=== PATIENT | male | born 2000 | race Two or more races ===

== ENCOUNTER 2025-06-09 08:33 | Emergency (ER) | payer MEDICAID ==
[~2025-06-09] VITALS: Ht 182.9 cm; Wt 136.5 kg
[2025-06-09] MEDS: IV NS 0.9% 1,000 ML BAG IV ONE (08:52)
[2025-06-09] MEDS ORDERED: ONDANSETRON HCL/PF 4 MG/2 ML VIAL ONE (08:54)
[2025-06-09] MEDS ORDERED: DICYCLOMINE HCL INJ 20 MG/2 ML AMPUL IM ONE (08:54)
[2025-06-09 08:56] LABS: PLATELET COUNT (AUTO) 254 K/uL (150-450); RED BLOOD CELL COUNT(AUTO) 6.01 MIL/uL (4.5-6.0); RED CELL DISTRIBUTION WIDTH 13.7 % (11.5-15.0); WHITE BLOOD COUNT (AUTO) 12.7 K/uL (4.3-11.0)
[2025-06-09] MEDS: DICYCLOMINE HCL INJ 20 MG/2 ML AMPUL IM ONE (08:59)
[2025-06-09] MEDS: ONDANSETRON HCL/PF 4 MG/2 ML VIAL IV ONE (09:00)
[2025-06-09 09:02] LABS: CALCIUM, SERUM 9.4 mg/dL (8.5-10.1); CREATININE 1.1 mg/dL (0.6-1.3); SODIUM SERUM 138.0 mmol/L (136-145); UREA NITROGEN, BLOOD 12.0 mg/dL (7-18)
[2025-06-09 09:08] LABS: ASPARTATE AMINOTRANSFERASE 29.0 U/L (15-37); TOTAL PROTEIN, SERUM 7.6 g/dL (6.4-8.2)
[2025-06-09] MEDS ORDERED: MORPHINE SULFATE INJ 4 MG/ML DISP.SYRIN ONE (09:39)
[2025-06-09] MEDS: MORPHINE SULFATE INJ 2 MG/ML DISP.SYRIN IV ONE (09:43)
[2025-06-09] MEDS ORDERED: KETOROLAC TROMETHAMINE INJ 30 MG/ML VIAL ONE (10:04)
[2025-06-09] MEDS: KETOROLAC TROMETHAMINE INJ 30 MG/ML VIAL IV ONE (10:07)
[2025-06-09] MEDS ORDERED: TAMS-12 PO (10:35)
[2025-06-09] MEDS ORDERED: ONDA4TAB5 PO (10:35)
[2025-06-09] MEDS ORDERED: IBUP-1955 PO (10:35)
[2025-06-09 11:05] VITALS: BP 140/81; TEMP 98.3; O2SAT 100
[2025-06-09 11:32] LABS: APPEARANCE,URINE CLEAR (CLEAR); BLOOD, URINE Large Ery/uL (NEGATIVE); LEUKOCYTE ESTERASE ,URINE Negative (NEGATIVE); NITRITE, URINE NEGATIVE (NEGATIVE); UGLUCOSE Negative (NEGATIVE)
[2025-06-09 11:45] LABS: ADD URINE CULTURE NO; CALCIUM OXALATE CRYSTALS,UR Few /HPF (None Seen); SQUAMOUS EPITHELIAL CELL,UR None Seen /HPF (None Seen)
== END 2025-06-09 11:06 | disposition home or self-care (01) ==
LOC: ER 08:35
DX: N13.2 Hydronephrosis with renal and ureteral calculous obstruction (principal); E73.9 Lactose intolerance, unspecified; F12.90 Cannabis use, unspecified, uncomplicated; K76.0 Fatty (change of) liver, not elsewhere classified
CPT/HCPCS: 99285; 74176; 96374; 96375; 96361; 85025; 80048; 83690; 80076; 81001; 36415; 96372; J1885; J2270; J2405; J7030; J0500